=== PATIENT | male | born 1965 | race Caucasian/White ===

== ENCOUNTER 2021-05-26 09:17 | Day surgery (SDC) | payer BC, SELFPAY ==
[2021-04-19 15:16] VITALS: BMI 28.5
--- NOTE | 2021-05-15 10:05 | EKG12_ITS ---
Test Reason : PRE-OP Blood Pressure : / mmHG Vent. Rate : 086 BPM Atrial Rate : 086 BPM P-R Int : 112 ms QRS Dur : 084 ms QT Int : 372 ms P-R-T Axes : 019 020 033 degrees QTc Int : 445 ms Normal sinus rhythm Normal ECG Confirmed by DORIS RUIZ, LIZABETH ([id number]), map editor DARLIN AGUILA ([id number]) on 05/17/2021 1:58:51 PM Referred By: Brad Warren Confirmed By:MAHOGANY GEORGE MD
[2021-05-15 10:39] LABS: Hematocrit 44.5 % (40-54); Hemoglobin 15.2 g/dL (13.0-16.5); Mean Corp Hgb Conc 34.2 g/dL (32-36); Mean Corpuscular Hgb 29.5 pg (27.0-32.0); Mean Corpuscular Volume 86.2 fL (80-94); Platelet Count 297 K/mm3 (150-450); RBC Distribution Width CV 12.8 % (11.6-14.6); RBC Distribution Width SD 40.4 fl (35.1-43.9); Red Blood Count 5.16 M/mm3 (4.6-6.2); White Blood Count 6.6 K/mm3 (4.4-11.0)
[2021-05-15 11:14] LABS: Anion Gap 5 (5-15); BUN 15 mg/dL (7-18); BUN/Creat Ratio 13.9 RATIO (10-20); Chloride 106 mmol/L (98-107); Creatinine, Serum 1.08 mg/dL (0.70-1.30); EST Glomerular Filtration Rate 75 mL/min (>60); Est Glom Filt Rate - Afr Amer 91 mL/min (>60); Glucose 94 mg/dL (74-106); Potassium 3.4 mmol/L (3.5-5.1); Sodium Level 140 mmol/L (136-145)
[2021-05-26] VITALS (7 sets, daily range): BP systolic 94–149; BP diastolic 57–98; PULSE 62–88; RESP 16; TEMP 36.2–37.2; O2SAT 93–100; BMI 27.8
--- NOTE | 2021-05-26 | HERN_PTH ---
PATIENT: ESTIVEN GARCIA LOC: [facility] [place][id number] AGE/SX: 56/M ROOM: RE05/26/[address]: Dr. Brad Warren MD : 1965 BED: DIS: 05/26/2021 SPEC #: [id number] RECD: 05/28/21 13:27 STATUS: ANGELICA REDenisse #: [id number] TANESHA: 05/26/21 00:[address]: Brad Warren DEPT: SURGICAL PATHOLOGY RECD BY: Madhu Peguero ENTERED: 05/29/21 08:09 SP TYPE: Hernia OTHR DR: Dr. Jose Green MD Tissues: HERNIA Procedures: Surgery Specimen Level II HEADER OPERATION: Umbilical hernia repair with mesh PRE-OP DIAGNOSIS: Umbilical hernia TISSUE SUBMITTED: Hernia sac contents MICROSCOPIC DIAGNOSIS Hernia sac contents: Pieces of mature adipose tissue, clinically umbilical hernia sac contents. SJ:shakeel 05/30/2021 MICROSCOPIC DESCRIPTION Slides are reviewed. GROSS DESCRIPTION Received in fixative is one container labeled with the patient's name and designated hernia sac contents. The specimen consists of a piece of adipose tissue measuring 3 x 2.5 x 2 cm. A small piece of adipose tissue is also noted measuring 2 x 0.5 x 0.2 cm. Sections do not reveal any mass lesion. Cardiac Rehabilitation Specialist sections are submitted in one cassette. / SJ:shakeel 05/29/21 TC:5 [facility]: [id number]
--- NOTE | 2021-05-26 10:24 | PCM.HP.BLA ---
History and Physical Date of Admission: 05/26/21 Visit Reasons: UMBILICAL HERNIA Chief Complaint: umbilical hernia Inventory Audit Clerk Required: No Is patient in pain?: No Allergies No Known Allergies Allergy (Unverified 04/19/21 15:16) Medications amlodipine 10 mg tablet 10 mg PO DAILY 04/19/21 [History Confirmed 04/19/21] hydrochlorothiazide 25 mg tablet 25 mg PO DAILY 04/19/21 [History Confirmed 04/19/21] [facility] Medical History (Updated 04/19/21 @ 15:[address] Brad Warren MD) HTN (hypertension) Surgical History (Updated 04/19/21 @ 15:15 by Reene Ann) S/P LASIK surgery Social History (Updated 04/19/21 @ 15:16 by Renee Ann) Smoking Status: Never smoker alcohol intake: current alcohol intake frequency: a few times a month HPI HPI HPI: ESTIVEN GARCIA, is a 55 M who presents to the office today for surgical consultation regarding an umbilical hernia. The patient is referred by Dr.Arun Green and a written copy of my surgical consult will be returned to him. The patient states that he has had it for a year and a half. He does not note any specific trauma or injury. He has not had any abdominal surgery. It is progressively enlarging. 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 Although he does a lot of walking fortunately he does not do heavy lifting or straining. He does like to play golf but he states that he can forego that. Because of the progressive enlargement he is interested in seeking a definitive repair. It may well be that his hernia has progressed since September 2020 when he had COVID-19. He states that he did have a degree of left lower lobe pneumonia. Fortunately he did not require hospitalization. Since that time he has had the vaccination. ROS General General: No weight change, appetite, fatigue, colon cancer, breast cancer or weakness HEENT HEENT: Yes eye injury and eye surgery; No difficulty swallowing, swollen glands or hoarseness Endo Endocrine: No thyroid disease, diabetes mellitus, thyroid cancer, Hair loss, heat intolerance or cold intolerance Skin Skin: No rash or changing moles Breast Breast: No left breast lump, right breast lump, nipple discharge, breast pain, abnormal mammogram, abnormal US or breast enlargement Musc Musculoskeletal: No back problems, arthritis, rheumatoid arthritis, gout or joint pain Cardio Cardiovascular: Yes high blood pressure; No murmur, pacemaker, heart disease, atrial fibrillation, heart attack, heart stent, palpitations, shortness of breat with exertion or chest pain Psych Psychiatric: No depression, anxiety or hearing voices Resp Respiratory: No shortness of breath, No sleep apnea, No cough, No COPD, No asthma, No emphysema and No wheezing Gastro Gastrointestinal: No abdominal pain, No nausea or vomiting, No diarrhea, No constipation, No blood in stool, No acid reflux, No hemorrhoids, No ulcers, No gallbladder problem and No black,tarry stools Soren Hematologic: No blood thinners, No blood disorders, No bleeding, No anemia and No blood clots Neuro Neurologic: No system reviewed and no additional complaints, except as documented, No as per HPI, No abnormal gait, No abnormal hearing, No abnormal movements, No abnormal speech, No behavioral changes, No burning sensations, No confusion, No convulsions, No disequilibrium, No dizziness, No localized weakness, No frequent falls, No headache(s), No lack of coordination, No loss of vision, No memory loss, No numbness, No other visual disturbances, No radicular pain, No restless legs, No sensory deficit, No syncope, No tingling, No tremor(s), No weakness and No other Exam Const General: cooperative, healthy appearing, comfortable and no acute distress Nutritional Appearance: average body habitus Orientation: alert and awake [facility] Head: normal to inspection Eyes General: appearance normal, both eyes and all related structures Chest Chest palpation & inspection: normal inspection of the chest Resp Effort & Inspection: normal respiratory effort Auscultation: clear to auscultation bilaterally Cardio Rate: regular rate Rhythm: regular rhythm GI Palpation: soft and no hepatosplenomegaly Auscultation: normal bowel sounds Musc Cervical Spine: normal cervical lordosis Neuro General: patient alert and patient awake Extrem General: no calf tenderness Psych Appearance: grossly normal COVID (Procedure Consent) Procedure Criteria Procedure Criteria: Yes Elective The surgeon/proceduralist and patient have discussed in detail the risk of exposure to and/or potential harm posed by the COVID-19 virus with having a surgery/procedure at this time versus the risk of delaying the surgery/procedure. It is not possible to know either the risk of delaying the surgery or procedure or chance of getting an infection with perfect accuracy, but a joint decision was made between the patient and the surgeon/proceduralist to proceed at this time with the scheduled surgery/procedure as indicated on the consent form. Assessment and Plan Assessment and Plan (1) Umbilical hernia: Status: Acute Qualifiers: Obstruction and gangrene presence: without obstruction or gangrene Qualified Code(s): K42.9 - Umbilical hernia without obstruction or gangrene Plan - Dr. Brad Warren MD: I recommend to the patient umbilical herniorrhaphy with mesh. Believe this can be accomplished directly through a small curvilinear incision. I have discussed technique, benefit, risk, alternatives. He has had an opportunity to ask and have questions answered. We will schedule procedure at his discretion. I very much appreciate the kind opportunity of assisting with the surgical care. Copy: Dr.Arun Peter Warren M.D., F.A.C.S. Coding Level of Care Code Off vis,new,level 3 Diagnoses Umbilical hernia K42.9 Obstruction and gangrene presence: without obstruction or gangrene I have re-examined the patient. There are no clinical changes since date of exam. Brad Warren M.D., F.A.C.S.
[2021-05-26] MEDS: Cefazolin 2 GM in 0.9% Normal Saline 100 ML IV (10:42)
--- NOTE | 2021-05-26 10:45 | EX.PCM.DISCH ---
Discharge Instructions Procedure General Surgery Diet Discharge Diet: Light diet - advance as tolerated (if you have questions about your diet instructions, please talk to you doctor.) Activity Discharge Activity: May Not Drive (for 3-5 days or while taking narcotic pain medicine.) May shower in (days): 1 Lifting Restrictions: 10 pounds Dressing / Incision Call your doctor if your incision/area has: Continuous Slow Oozing, Sudden Increased Bleeding, Increased Pain/ Swelling, Increased Redness and Foul Smelling Discharge Call your doctor if you observe: Fever of 101 or Higher Suture Line Care: Avoid Pulling/Pushing and Avoid Pinching/Bending Additional Dressing/Incision Instructions:: Change or remove dressing in 4 days. Leave steri-strips in place for 1 week. Follow Up Care Please Follow Up With: Brad Warren MD When: Call [phone] to make an appointment to be seen in about 10 days. Test Results: Test results from this visit will be discussed in further detail at your follow-up appointment, if applicable. Discharge Plan Admission Attending Provider: Brad Warren Primary Care Provider: Jose Green Discharge Orders/Prescriptions Prescriptions: No Action amlodipine [Norvasc] 10 mg tablet 10 mg PO DAILY RF: 0 hydrochlorothiazide 25 mg tablet 25 mg PO DAILY RF: 0
[2021-05-26] MEDS: Bupivacaine Mpf 0.5% 30 ML VIAL (11:00)
--- NOTE | 2021-05-26 11:26 | PCM.OPRPT ---
Problems Associated Problem List Diagnoses (1) Umbilical hernia: Report of Operation Date of Procedure: 05/26/21 Pre-Operative Diagnosis: Incarcerated umbilical hernia Post-Operative Diagnosis: Same Surgery/Procedure Performed:: Umbilical herniorrhaphy with 4.[address] mesh Reference [id number], lot [id number], expiry date 08/03/2022 Description of Surgical Findings:: Timeout and informed consent was obtained. 56-year-old gentleman was taken to the operating placed upon the table underwent general anesthesia. Ancef 2 g were given intravenously preoperatively. Clean procedure. The abdomen was sterilely prepped and draped. A supraumbilical curvilinear incision was created sharp dissection carried down through the subtenons tissue and immediately incarcerated preperitoneal fatty tissue was encountered. Sac and contents were transected with electrocautery. The umbilical skin was elevated. The defect measured approximately a centimeter and a half in diameter. A 4.3 cm Ventralex was wetted and inserted. It unfolded nicely. The tails were secured with 0 Nurolon. The fascia was approximated with the same. The umbilical skin was secured to the fascia with 4-0 Monocryl. The skin edges approximated opted 4-0 Monocryl. Dermabond was applied. The periincisional areas anesthetized with 0.5% Marcaine. A total of 30 cc was used. Cotton ball Telfa OpSite dressings applied. Sponge and instrument and needle counts were reported the surgeon be correct. Specimen hernia sac and contents. Drains none. Blood loss minimal. The patient was taken to the recovery area in satisfactory addition without apparent complication Brad Warren M.D., F.A.C.S. Surgeon: Brad Warren Type of Anesthesia: General and Local Anesthesiologist: [place]
== END 2021-05-26 13:18 ==
LOC: SDC 09:20 → AC 09:21
PROVIDERS: PCP Family Medicine; Referring Provider Surgery; Visit Provider Surgery
PROC: (CPT 49587; principal; 2021-05-26 10:45)
DX: K42.0 Umbilical hernia with obstruction, without gangrene (principal); I10 Essential (primary) hypertension; Z79.899 Other long term (current) drug therapy
CPT/HCPCS: 00840; 49587; 36415; 80048; 85027; 88302; 93005; J7120; C1781; J2405